=== PATIENT | female | born 1990 | race African-American/Black ===

== ENCOUNTER 2017-02-12 19:00 | Inpatient (IN) | payer OTHER ==
[~2017-02-12] VITALS: Ht 167.6 cm; Wt 72.6 kg
--- NOTE | ~2017-02-12 | PN ---
Unit #: [id number] #: [id number] Patient: AYANA RHODES [id number] [facility] [address] [place] [address] [id number] I MR#: [id number] NAME: AYANA RHODES. ROOM: P171 Age: 26 Sex: F Admission Date: 02/13/2017 : 1990 Attending Physician: Lester Lyn M.D. Admitting Physician: Lester Lyn M.D. Primary Care Physician: Primary Care Physician Poonam LECHUGA PROGRESS NOTES DATE 02/14/2017 DISCUSSION Ayana has some withdrawal symptoms today although her blood pressure remains low, and she is not able to receive clonidine for detox. She reports some abdominal cramping and insomnia. She is alert and fully oriented with no psychosis, and no suicidal ideations. ASSESSMENT Opiate dependence. PLAN Continue detox protocol. Anticipating discharge soon based on the patient's improvement. Dictated by... Lisa PhippsH/bzg TD: 02/15/2017 10:34 JOB #: [id number] [facility] PROGRESS NOTES Page 1 of 1 X Lester Lyn MD PROGRESS NOTE
--- NOTE | ~2017-02-12 | DS ---
Unit #: [id number] #: [id number] Patient: AYANA RHODES [id number] [place] [address] [id number] MR#: [id number] NAME: AYANA RHODES. ROOM: P171 Age: 26 Sex: F Admission Date: 02/13/2017 : 1990 Discharge Date: 02/15/2017 Attending Physician: Lester Lyn M.D. Primary Care Physician: No Primary Care Physician DISCHARGE SUMMARY REASON FOR ADMISSION Ayana is a 26-year-old woman who reports she is abusing opiates with the occasional use of benzodiazepines. She was admitted for detox with no suicidal ideation, intent or plan. DIAGNOSTIC STUDIES LABORATORY DATA: Please see hospital chart. HOSPITAL COURSE The patient was admitted and placed on the opiate detox protocol. Trazodone was also provided for insomnia. She had an uneventful period of detox and had hypotension, which indicated the possibility of taking clonidine. Her other conditions were treated appropriately and on the date of discharge she continued to be free of suicidal ideation with no further detox symptoms. DISCHARGE DIAGNOSES Blanco I Opiate withdrawal. Blanco II No diagnosis. Blanco III Opiate withdrawal syndrome, resolved. FOLLOWUP CARE Instructed the patient to follow up with chemical dependence programming in the community as arranged with the unit forensic social worker. DISCHARGE MEDICATIONS None. CONDITION AT DISCHARGE Fair. PROGNOSIS Fair. DIET AND ACTIVITY Ad rita. Dictated by... Lester Lyn M.D. [facility]/ts Unit #: [id number] #: [id number] Patient: AYANA RHODES TD: 02/21/2017 10:13 JOB #: [id number] DISCHARGE SUMMARY Page 1 of 1 X Lester Lyn MD X DISCHARGE SUMMARY
--- NOTE | ~2017-02-12 | PA ---
Unit #: [id number] #: [id number] Patient: AYANA RHODES [id number] [place] [address] [id number] MR#: [id number] NAME: AYANA RHODES. ROOM: P171 Age: 26 Sex: F Admission Date: 02/13/2017 : 1990 Date of Assessment: Attending Physician: Lester Lyn M.D. Admitting Physician: Lester Lyn M.D. Primary Care Physician: Primary Care Physician No PSYCHIATRIC ASSESSMENT DATE OF SERVICE 02/13/2017. INFORMANTS The patient, reliable; OLOP, reliable. CHIEF COMPLAINT "I'm going to get off my drugs." HISTORY OF PRESENT ILLNESS Ms. Rhodes is a 26-year-old woman, who reports that she is abusing opioids to a significant extent with the occasional use of benzodiazepines. She had no suicidal ideation, but reported difficulty tolerating detox in the outpatient setting and was admitted for stabilization. PAST PSYCHIATRIC HISTORY This is Ms. Rhodes's first admission to this facility. She has had outpatient rehab in the past. FAMILY PSYCHIATRIC HISTORY None reported. SOCIAL HISTORY The patient is typically single, but has some supportive family in the area. Further social history is not available at this time. PAST MEDICAL HISTORY No chronic medical problems. MEDICATIONS None currently. ALLERGIES No known medication allergies. SUBSTANCE USE HISTORY As noted, the patient has been using opioids to excess with the occasional use of benzodiazepines. MENTAL STATUS EXAMINATION Ms. Rhodes presented as a mildly disheveled woman, who appeared her stated age. She was cooperative with the examination. Her speech was Unit #: [id number] #: [id number] Patient: AYANA RHODES spontaneous and easily understood. Her musculoskeletal examination was calm. Her mood was irritable with a congruent affect. She was alert and fully oriented. Her memory and concentration were intact. Her thought processes were logical with no active psychosis, suicidal ideation, intent, or plan. Her insight and judgment were intact. Her fund of knowledge and abstraction were intact. ASSETS AND LIABILITIES The patient is presenting voluntarily for treatment and willing for long-term care. Liabilities include difficulty establishing and maintaining sobriety. ADMITTING DIAGNOSES AXIS I: Opiate dependence withdrawal, uncomplicated; benzodiazepine abuse. AXIS II: No diagnosis. AXIS III: Opioid withdrawal. AXIS IV: AXIS V: PSYCHIATRIC PLAN Ms. Rhodes was admitted and placed on the opioid detox protocol. Trazodone will be provided as needed for insomnia. She will enroll in dual diagnosis groups and activities. Physical examination and laboratory studies will be conducted. TREATMENT GOALS Establishment of sobriety, improvement in insight, and improvement in coping skills. DISCHARGE PLANNING Follow up with chemical dependence resources in the community. ESTIMATED LENGTH OF STAY 5 days. Dictated by... Lester Lyn M.D. ROSEANNE/jackie TD: 02/13/2017 18:22 JOB #: [id number] PSYCHIATRIC ASSESSMENT Page 1 of 1 X Lester Lyn MD PSYCHIATRIC ASSESSMENT
--- NOTE | ~2017-02-12 | HP ---
Unit #: [id number] #: [id number] Patient: AYANA RHODES [id number] [place] [address] [id number] MR#: [id number] NAME: AYANA RHODES. ROOM: P171 Age: 26 Sex: F Admission Date: 02/13/2017 : 1990 Attending Physician: Lester Lyn M.D. Admitting Physician: Lester Lyn M.D. Primary Care Physician: Primary Care Physician No HISTORY AND PHYSICAL HISTORY OF PRESENT ILLNESS Ayana is a 26-year-old female admitted on 02/13/2017 to [facility] for detox from Xanax and Lortab. PAST MEDICAL HISTORY None. PAST SURGICAL HISTORY Bilateral tubal ligation. SOCIAL HISTORY She smokes Black & Milds. Denies alcohol use. Does report illegal use of nonprescribed Lortab and Xanax. She is single and living with her children. FAMILY HISTORY Noncontributory. REVIEW OF SYSTEMS CONSTITUTIONAL: No fever or chills. HEENT: Denies any sore throat, ear pain or runny nose. CARDIOVASCULAR: Denies chest pain, irregular heart rhythm or palpitations. CHEST: Denies shortness of breath or cough. No hemoptysis. GASTROINTESTINAL: Denies nausea, vomiting, diarrhea or chronic constipation. ENDOCRINE: Denies history of increased thirst or urination. No recent significant weight loss or gain. GENITOURINARY: Denies dysuria, frequency, or hematuria. SKIN: Denies any rashes. HEMATOLOGIC: Denies history of increased bleeding or bruising. MUSCULOSKELETAL: Denies any hot, swollen joints. No generalized muscle pain. NEUROLOGIC: Denies problems with vision or speech. No frequent, severe headaches. No numbness, tingling or weakness in any extremities. Denies loss of bladder or bowel control. CURRENT MEDICATIONS None. ALLERGIES None. Unit #: [id number] #: [id number] Patient: AYANA RHODES PHYSICAL EXAMINATION GENERAL: Alert, oriented, in no acute distress. VITAL SIGNS: Blood pressure 101/66, heart rate 75, respirations 18, temperature 98.8. HEIGHT: 5 foot 6 inches. WEIGHT: 160 pounds. SKIN: Warm and dry without rash or lesion. HEENT: Normocephalic. TMs not viewed. Oral and nasal passages clear. Conjunctivae clear. PERRLA. EOMs intact. NECK: Supple without lymphadenopathy or thyromegaly. HEART: Regular rate and rhythm without murmur. LUNGS: Clear. ABDOMEN: Soft, nontender, without masses or hepatosplenomegaly. : Not done. EXTREMITIES: No evidence of cyanosis, clubbing or edema. Moves all without focal deficit. NEUROLOGICAL: Grossly within normal limits. Cranial Nerves: II: Visual martin are intact. III, IV AND : Extraocular movements are intact. Pupils are equal, round and reactive to light. V: Facial sensation is grossly normal. VII: Facial movements and expression are normal. VIII: Auditory acuity grossly intact. IX, X: Uvula is midline. Phonation is normal. XI: Patient shrugs shoulders and turns head normally. XII: Tongue protrudes in the midline. Sensory and Motor Function: Sensory and motor sensation is grossly normal. Motor: moves all extremities well. Coordination: Gait is normal. Deep Tendon Reflexes: Intact. IMPRESSION Psychiatric admission. RECOMMENDATIONS Psychiatric, per psychiatrist. MEDICAL: I see no contraindications to participating in facility's activities. MEDICAL PROGNOSIS Good. MEDICAL CONDITION Stable. Dictated by... Luis Ceja/naveed TD: 02/13/2017 21:08 JOB #: [id number] Unit #: [id number] #: [id number] Patient: AYANA RHODES HISTORY AND PHYSICAL Page 1 of 1 X OSWALD FREED APRN X HISTORY AND PHYSICAL
[2017-02-13 09:50] LABS: BASOPHIL% 0.5 % (0-2.5); EOSINOPHIL# 0.1 X10e3 (0-0.7); EOSINOPHIL% 1.5 % (0.0-7.0); HEMATOCRIT 36.6 % (35.0-45.0); HEMOGLOBIN 12.6 gm/dL (12.0-16.0); LYMPHOCYTE# 2.8 X10e3 (1.0-3.5); LYMPHOCYTE% 49.6 % (17.0-45.0); MEAN CORPUSCULAR HEMOGLOBIN 33.7 PG (28-34); MEAN CORPUSCULAR HGB CONC 34.4 g/dL (30-36); MEAN PLATELET VOLUME 9.2 FL (6.5-11.5); MONOCYTE# 0.5 X10e3 (0-1.0); MONOCYTE% 8.5 % (3.0-12.0); NEUTROPHIL# 2.3 X10e3 (1.5-7.1); NEUTROPHIL% 39.9 % (40-75); PLATELET COUNT 153 X10e3 (140-420); RED BLOOD COUNT 3.74 X10e (3.90-5.30); RED CELL DISTRIBUTION WIDTH 12.4 % (11.0-15.5); WHITE BLOOD COUNT 5.7 X10e3 (4.0-10.5)
[2017-02-13 09:58] LABS: DIFF IND NO
[2017-02-13 10:00] LABS: ALBUMIN SERUM 3.7 g/dL (3.5-5.0); BILIRUBIN,TOTAL 0.6 mg/dL (0.2-2.0); CALCIUM SERUM 8.9 mg/dL (8.4-10.2); CREATININE SERUM 0.6 mg/dL (0.6-1.4); GLOM FILT RATE Estimated 143.8 mL/min (>60); POTASSIUM 3.1 mmol/L (3.5-5.1); PROTEIN TOTAL SERUM 6.4 g/dL (6.0-8.3)
== END 2017-02-15 12:10 | DRG 897 ==
LOC: P1E 02-13 00:37
PROVIDERS: Psychiatry & Neurology Psychiatry
PROC: HZ2ZZZZ Detoxification Services for Substance Abuse Treatment (ICD-10-PCS; principal; 2017-02-13)
DX: F11.23 Opioid dependence with withdrawal (principal); F13.10 Sedative, hypnotic or anxiolytic abuse, uncomplicated
CPT/HCPCS: 80053; 85025; 86592